=== PATIENT | male | born 1970 | race Caucasian/White ===

== ENCOUNTER → 2019-12-29 | Outpatient (CLI) | payer MEDICARE | LOC: CARD 11:01 | PROVIDERS: ATTEND Internal Medicine | DX: I34.0 Nonrheumatic mitral (valve) insufficiency (principal); I51.7 Cardiomegaly | CPT/HCPCS: 93306 ==

== ENCOUNTER → 2020-01-03 | Outpatient (CLI) | payer MEDICARE ==
[~2020-01-03] VITALS: Ht 172 cm; Wt 113.0 kg
[~2020-01-03] MED LIST: CATHETER FLUSH 10 ML SYR IV PRN
[2020-01-03 07:51] VITALS: BP 129/65
--- NOTE | 2020-01-04 13:13 | Cardiology Stress Test Report ---
Stress Test Report Date of Procedure/Referring: Date of Procedure: Jan 04, 2020 PCP Sakina Quintero DO Admitting Physician Sakina Quintero DO Indications: Chest pain Baseline Vital Signs Vital Signs Date Time Temp Pulse Resp B/P (MAP) Pulse Ox O2 Delivery O2 Flow Rate FiO2 01/03/20 07:51 70 129/65 (86) 99 01/03/20 08:06 18 Room Air Summary: Patient receive a resting and stress dose of Myoview, images were acquired and reviewed in the short axis view, horizontal long axis view and vertical long axis view. TID: 0.95 SSS: 0 SDS: 0 EF: 72 1. No ischemia or infarction on SPECT images 2. Normal left ventricular size, EF 72 percent RIANA ELIZONDO MD Jan 04, 2020 13:13
== END ==
LOC: CARD 07:15
PROVIDERS: ATTEND Internal Medicine
DX: R07.9 Chest pain, unspecified (principal)
CPT/HCPCS: 78452; 93017; A9502

== ENCOUNTER 2021-10-24 18:25 | Emergency (ER) | payer MEDICARE ==
[~2021-10-24] VITALS: Ht 172.7 cm; Wt 129.3 kg
--- NOTE | 2021-10-24 19:07 | ED Psychosocial ---
General Chief Complaint: Psych/Social Disorder Stated Complaint: PANIC ATTACK Nursing Triage Note: PT AMB TO [facility] AFTER BEING BROUGHT IN BY [facility]. PT STATES HE HAD A PANIC ATTACK ABOUT 1[employer]. STATES HE WAS TELLING FRIEND HE HAD MULTIPLE PERSONALITIES, FRIEND STARTED TO LAUGH, AND TRIGGERED PANIC ATTACK. PT STATES HE IS "WANTING TO BE COMMITTED". PT HAS LONG PYSCH HX. STATES HE IS OUT OF HIS PRESCRIBED ATIVAN. Source: patient, EMS Exam Limitations: no limitations History of Present Illness Date Seen by Provider: Oct 24, 2021 Time Seen by Provider: 18:32 Initial Comments 50-year-old male with past medical history of dissociative identity disorder as well as anxiety coming in via EMS due to one of his personalities coming out that speaks in tongues while at jainism today. He says he has been having multiple panic attacks today, follows with [facility], and has a caseworker intake. He told the people he was staying with that he has DID and they started laughing. He feels like this started the trigger of the different personality. He says he believes he has at least 10 different personalities. He says all of them go by the name of in that he believes. He believes currently his personality that is in charge right now is one of the main ones. His plan is to call his caseworker intake in the morning and have follow-up. His parents are coming back to town and his plan will be to stay with them. He has a safe place to stay tonight. He denies any thoughts to harm himself or harm anyone else. Allergies and Home Medications Allergies Coded Allergies: No Known Drug Allergies (Unverified , 01/03/20) Patient Home Medication List Home Medication List Reviewed: Yes Review of Systems Constitutional: No fever EENTM: No blurred vision Respiratory: No cough Cardiovascular: No chest pain Gastrointestinal: No abdominal pain Genitourinary: no symptoms reported Musculoskeletal: no symptoms reported Skin: no symptoms reported Psychiatric/Neurological: Anxiety All Other Systems Reviewed Negative Unless Noted: Yes Past Puffjtg-Syggku-Vgsitl Hx Patient Social History Tobacco Use?: No Use of E-Cig and/or Vaping dev: No Substance use?: No Alcohol Use?: No Pt feels they are or have been: No Past Medical History Surgeries: No Physical Exam Vital Signs - First Documented 10/24/21 18:25 Temp 37.7 Pulse 71 Resp 16 B/P (MAP) 160/81 (107) Pulse Ox 96 O2 Delivery Room Air Capillary Refill : Less Than 3 Seconds Height, Weight, BMI Height: '" Weight: lbs. oz. kg; 43.00 BMI Method: General Appearance: WD/WN, no apparent distress HEENT: PERRL/EOMI, normal ENT inspection, pharynx normal Neck: non-tender, full range of motion, supple, normal inspection Respiratory: chest non-tender, lungs clear, normal breath sounds, no respiratory distress, no accessory muscle use Cardiovascular: regular rate, rhythm, no edema, no murmur Gastrointestinal: normal bowel sounds, non tender, soft; No distended, No gu arding, No rebound Extremities: normal range of motion, non-tender, normal inspection, no pedal edema, no calf tenderness, normal capillary refill Neurologic/Psychiatric: no motor/sensory deficits, alert, normal mood/affect, oriented x 3 Appearance/Memory: appropriate appearance, appropriate insight Behavior/Eye Contact: cooperative, good eye contact, normal speech Thoughts/Hallucinations: normal thought pattern, no apparent hallucination Skin: normal color, warm/dry Lymphatic: no adenopathy Progress/Results/Core Measures Results/Orders Vital Signs/I&O 10/24/21 18:25 Temp 37.7 Pulse 71 Resp 16 B/P (MAP) 160/81 (107) Pulse Ox 96 O2 Delivery Room Air Blood Pressure Mean: 107 Progress Progress Note : Progress Note 50-year-old male with above history coming in due to a different personality emerging with known dissociative identity disorder. Currently he is well- appearing, pleasant, not wanting to hurt himself or harm anyone else. And he has good follow-up with mental health. He does not want a full mental health evaluation in the ER as he is back to his baseline. He says his panic attack is over, but he does have a baseline anxiety that is above normal right now. Given oral Ativan and someone also drive him home. Has a safe place to go and has follow-up Departure Impression Primary Impression: Dissociative identity disorder Additional Impression: Anxiety Disposition: 01 HOME, SELF-CARE Condition: Stable Departure-Patient Inst. Decision time for Depature: 19:06 Patient Instructions: Anxiety, Adult (DC) Add. Discharge Instructions: Please follow-up with your caseworker intake in the morning. If you have any thoughts to harm yourself or harm anyone else please come back to the ER. Work/School Note: Work Release Form Date Seen in the Emergency Department: Oct 24, 2021 Return to Work: Oct 25, 2021 Restrictions: No Restrictions KERRIE CARRENO MD Oct 24, 2021 19:07
[2021-10-24 19:11] VITALS: BP 154/68
[2021-10-24] MEDS ORDERED: LORazepam 0.5 MG (ATIVAN) TABLET PO ONE (19:15)
== END 2021-10-24 19:12 | disposition home or self-care (01) ==
LOC: EDUNIT# 18:35 → ER 18:37
DX: F41.9 Anxiety disorder, unspecified (principal); F44.81 Dissociative identity disorder
CPT/HCPCS: 99283

== ENCOUNTER 2022-01-04 23:26 | Emergency (ER) | payer MEDICARE ==
--- NOTE | 2022-01-04 23:34 | ED General ---
General Stated Complaint: PSYCH EVAL History of Present Illness Date Seen by Provider: Jan 04, 2022 Time Seen by Provider: 23:32 Initial Comments 51-year-old male with PMH of personality disorder/PTSD/recurrent suicide ideations and attempts, is brought in by police for suicidal ideation. Patient has been placed as involuntary hold, however patient does want help. Patient lives with his girlfriend who has a disability and so cannot accompany him to the hospital. Patient states that he wishes he was and wants to . In the past he has tried to cut himself, burn himself, overdose. Patient states that he feels he has demons in him who intermittently speaks through him and tells him to kill himself. When this occurs patient gets an evil laugh and start speaking non-Brazilian words. Denies pain, fever, palpitations. Patient states that he is compliant with all his medications, but it is not helping. The last time he had a medication change was 2 months ago. Patient also states that counseling is not helping him either. Allergies and Home Medications Allergies Coded Allergies: No Known Drug Allergies (Unverified , 01/03/20) Patient Home Medication List Home Medication List Reviewed: Yes Review of Systems Review of Systems Constitutional: no symptoms reported EENTM: no symptoms reported Respiratory: no symptoms reported Cardiovascular: no symptoms reported Gastrointestinal: no symptoms reported Genitourinary: no symptoms reported Musculoskeletal: no symptoms reported Skin: no symptoms reported Psychiatric/Neurological: Anxiety, Depressed, Emotional Problems Hematologic/Lymphatic: No Symptoms Reported Immunological/Allergic: no symptoms reported Past Yiyixvh-Svwgsi-Dkftos Hx Past Medical History Surgeries: No Physical Exam Vital Signs Capillary Refill : Height, Weight, BMI Height: '" Weight: lbs. oz. kg; 43.00 BMI Method: General Appearance: Anxious, Moderate Distress, Obese HEENT: PERRL/EOMI Neck: Normal Inspection Respiratory: Chest Non Tender, Lungs Clear Cardiovascular: Regular Rate, Rhythm Gastrointestinal: Non Tender, Soft Extremity: Normal Range of Motion Neurologic/Psychiatric: Alert, Oriented x3 Comments Suicidal ideations present. Pt intermittently speaks non-Brazilian words. Pt does not know any other languages except for Brazilian. Progress/Results/Core Measures Suspected Sepsis SIRS Temperature: Pulse: Respiratory Rate: Laboratory Tests 01/04/22 23:35: White Blood Count 9.3 Blood Pressure / Mean: Laboratory Tests 01/04/22 23:35: Creatinine 1.00, Platelet Count 364, Total Bilirubin 0.3 Results/Orders Lab Results Laboratory Tests Test 01/04/22 23:28 01/04/22 23:35 01/04/22 23:55 Range/Units Urine Color YELLOW Urine Clarity CLEAR Urine pH 7.0 5-9 Urine Specific [place] 1.010 L 1.016-1.022 Urine Protein NEGATIVE NEGATIVE Urine Glucose (UA) NEGATIVE NEGATIVE Urine Ketones NEGATIVE NEGATIVE Urine Nitrite NEGATIVE NEGATIVE Urine Bilirubin NEGATIVE NEGATIVE Urine Urobilinogen 0.2 < = 1.0 MG/DL Urine Leukocyte Esterase NEGATIVE NEGATIVE Urine RBC (Auto) TRACE-I H NEGATIVE Urine RBC 5-10 H /HPF Urine WBC NONE /HPF Urine Crystals NONE /LPF Urine Bacteria TRACE /HPF Urine Casts NONE /LPF Urine Mucus NEGATIVE /LPF Urine Culture Indicated NO Urine Opiates Screen NEGATIVE NEGATIVE Urine Oxycodone Screen NEGATIVE NEGATIVE Urine Methadone Screen NEGATIVE NEGATIVE Urine Propoxyphene Screen NEGATIVE NEGATIVE Urine Barbiturates Screen NEGATIVE NEGATIVE Ur Tricyclic Antidepressants Screen NEGATIVE NEGATIVE Urine Phencyclidine Screen NEGATIVE NEGATIVE Urine Amphetamines Screen NEGATIVE NEGATIVE Urine Methamphetamines Screen NEGATIVE NEGATIVE Urine Benzodiazepines Screen NEGATIVE NEGATIVE Urine Cocaine Screen NEGATIVE NEGATIVE Urine Cannabinoids Screen NEGATIVE NEGATIVE White Blood Count 9.3 4.3-11.0 10^3/uL Red Blood Count 5.17 4.30-5.52 10^6/uL Hemoglobin 13.8 13.3-17.7 g/dL Hematocrit 42 40-54 % Mean Corpuscular Volume 81 80-99 fL Mean Corpuscular Hemoglobin 27 25-34 pg Mean Corpuscular Hemoglobin Concent 33 32-36 g/dL Red Cell Distribution Width 14.6 H 10.0-14.5 % Platelet Count 364 130-400 10^3/uL Mean Platelet Volume 9.7 9.0-12.2 fL Immature Granulocyte % (Auto) 0 % Neutrophils (%) (Auto) 54 42-75 % Lymphocytes (%) (Auto) 28 12-44 % Monocytes (%) (Auto) 10 0-12 % Eosinophils (%) (Auto) 7 0-10 % Basophils (%) (Auto) 1 0-10 % Neutrophils # (Auto) 5.1 1.8-7.8 X 10^3 Lymphocytes # (Auto) 2.6 1.0-4.0 X 10^3 Monocytes # (Auto) 1.0 0.0-1.0 X 10^3 Eosinophils # (Auto) 0.6 H 0.0-0.3 10^3/uL Basophils # (Auto) 0.1 0.0-0.1 10^3/uL Immature Granulocyte # (Auto) 0.0 0.0-0.1 10^3/uL Sodium Level 137 135-145 MMOL/L Potassium Level 3.8 3.6-5.0 MMOL/L Chloride Level 103 98-107 MMOL/L Carbon Dioxide Level 22 21-32 MMOL/L Anion Gap 12 5-14 MMOL/L Blood Urea Nitrogen 12 7-18 MG/DL Creatinine 1.00 0.60-1.30 MG/DL Estimat Glomerular Filtration Rate 92 BUN/Creatinine Ratio 12 Glucose Level 109 H 70-105 MG/DL Calcium Level 8.9 8.5-10.1 MG/DL Corrected Calcium 9.1 8.5-10.1 MG/DL Total Bilirubin 0.3 0.1-1.0 MG/DL Aspartate Amino Transf (AST/SGOT) 26 5-34 U/L Alanine Aminotransferase (ALT/SGPT) 26 0-55 U/L Alkaline Phosphatase 69 40-136 U/L Total Protein 7.1 6.4-8.2 GM/DL Albumin 3.8 3.2-4.5 GM/DL Salicylates Level < 0.3 L 5.0-20.0 MG/DL Acetaminophen Level < 10 L 10-30 UG/ML Serum Alcohol < 10 <10 MG/DL SARS-CoV-2 RNA (RT-PCR) Not Detected Not Detecte My Orders Orders - MARLENY PERES MD Cbc With Automated Diff (01/04/22 23:41) Comprehensive Metabolic Panel (01/04/22 23:41) Ekg Tracing (01/04/22 23:41) Alcohol (01/04/22 23:41) Salicylate (01/04/22 23:41) Acetaminophen (01/04/22 23:41) Ua Culture If Indicated (01/04/22 23:41) Drug Screen Stat (Urine) (01/04/22 23:41) Covid 19 Inhouse Test (01/04/22 23:41) Lorazepam Tablet (Ativan Tablet) (01/04/22 23:49) Vital Signs/I&O Capillary Refill : Progress Note : Progress Note 1. PSYCHOSIS WITH SUICIDAL IDEATIONS: - Labs: unremarkable - UA/ UDS: negative - EKG:normal sinus rhythm, no ischemic changes - Ativan 0.5mg oral given - Psych screening needed - Pt is placed involuntary by law enforcement. Departure Impression Primary Impression: Suicidal ideations Additional Impression: Psychosis Disposition: 65 XFER TO PSYCH HOSP/UNIT Condition: Stable MARLENY PERES MD Jan 04, 2022 23:34
[2022-01-04 23:46] LABS: CLARITY,URINE CLEAR; COLOR,URINE YELLOW; GLUCOSE, URINE (UA) NEGATIVE (NEGATIVE); PROTEIN,URINE NEGATIVE (NEGATIVE)
[2022-01-04 23:47] LABS: BACTERIA,URINE TRACE /HPF; BILIRUBIN,URINE NEGATIVE (NEGATIVE); KETONES,URINE NEGATIVE (NEGATIVE); LEUKOCYTE ESTERASE ,URINE NEGATIVE (NEGATIVE); NITRITE,URINE NEGATIVE (NEGATIVE)
[2022-01-04 23:47] LABS: HEMATOCRIT 42 % (40-54); HEMOGLOBIN 13.8 g/dL (13.3-17.7); MEAN CORPUSCULAR HEMOGLOBIN 27 pg (25-34); MEAN CORPUSCULAR VOLUME 81 fL (80-99); WHITE BLOOD COUNT 9.3 10^3/uL (4.3-11.0)
[2022-01-04 23:48] LABS: BASOPHILS # (AUTO) 0.1 10^3/uL (0.0-0.1); BASOPHILS % (AUTO) 1 % (0-10); EOSINOPHILS # (AUTO) 0.6 10^3/uL (0.0-0.3); EOSINOPHILS % (AUTO) 7 % (0-10); LYMPHOCYTES # (AUTO) 2.6 X 10^3 (1.0-4.0); LYMPHOCYTES % (AUTO) 28 % (12-44); MEAN CORPUSCULAR HGB CONC 33 g/dL (32-36); MEAN PLATELET VOLUME 9.7 fL (9.0-12.2); MONOCYTES % (AUTO) 10 % (0-12); NEUTROPHILS # (AUTO) 5.1 X 10^3 (1.8-7.8); NEUTROPHILS % (AUTO) 54 % (42-75); PLATELET COUNT 364 10^3/uL (130-400)
[2022-01-04] MEDS ORDERED: LORazepam 0.5 MG (ATIVAN) TABLET PO STA (23:49)
[2022-01-04 23:50] LABS: AMPHETAMINE SCREEN, URINE NEGATIVE (NEGATIVE); BARBITURATE SCREEN URINE NEGATIVE (NEGATIVE); BENZODIAZEPINES SCREEN URINE NEGATIVE (NEGATIVE); CANNABINOID SCREEN, URINE NEGATIVE (NEGATIVE); COCAINE SCREEN URINE NEGATIVE (NEGATIVE); METHADONE STAT NEGATIVE (NEGATIVE); OPIATE SCREEN URINE NEGATIVE (NEGATIVE); OXYCODONE STAT NEGATIVE (NEGATIVE); PROPOXYPHENE STAT NEGATIVE (NEGATIVE); TRICYCLIC ANTIDEPRESSANTS SCRE NEGATIVE (NEGATIVE)
[2022-01-04 23:59] LABS: BUN/CREATININE RATIO 12; CALCIUM 8.9 MG/DL (8.5-10.1); CARBON DIOXIDE 22 MMOL/L (21-32); CHLORIDE 103 MMOL/L (98-107); GFR ESTIMATED 92; GLUCOSE 109 MG/DL (70-105); POTASSIUM 3.8 MMOL/L (3.6-5.0); SODIUM 137 MMOL/L (135-145)
[2022-01-05] LABS: ACETAMINOPHEN < 10 UG/ML (10-30); ALANINE AMINOTRANSFERASE 26 U/L (0-55); ALBUMIN 3.8 GM/DL (3.2-4.5); ALKALINE PHOSPHATASE 69 U/L (40-136); BILIRUBIN,TOTAL 0.3 MG/DL (0.1-1.0); SALICYLATE < 0.3 MG/DL (5.0-20.0); TOTAL PROTEIN 7.1 GM/DL (6.4-8.2)
[2022-01-05 14:25] VITALS: BP 147/86
== END 2022-01-05 14:27 ==
LOC: EDUNIT# 23:26 → ER FS 23:28
DX: R45.851 Suicidal ideations (principal); F29 Unspecified psychosis not due to a substance or known physiological condition; E66.9 Obesity, unspecified; Z68.41 Body mass index [BMI] 40.0-44.9, adult; Z28.310 Unvaccinated for COVID-19; Z20.822 Contact with and (suspected) exposure to COVID-19
CPT/HCPCS: 36415; 80053; 80306; 81000; 85025; 87636; 93005; 99284; G0480 ×3; 80320; 80329

== ENCOUNTER 2022-06-21 13:26 | Emergency (ER) | payer MEDICARE ==
[2022-06-21] MEDS ORDERED: LORazepam 0.5 MG (ATIVAN) TABLET PO STA (13:50)
--- NOTE | 2022-06-21 14:17 | ED General ---
General Chief Complaint: General Problems/Pain Stated Complaint: AMS; NATURAL GAS EXPOSURE Nursing Triage Note: PT REPORTS "I CANT THINK RIGHT" D/T HIS MULTIPLE PERSONALITY DISORDER AND HE USUALLLY TAKES LORAZEPAM FOR HIS ANXIETY BUT HE FORGOT IT AT HOME IN [place]. Source of Information: Patient, EMS, Other (Significant other) History of Present Illness Date Seen by Provider: June 21, 2022 Time Seen by Provider: 13:33 Initial Comments 51-year-old male patient with dissociative identity disorder and panic attack brought in by EMS because of panic attack. Patient states that he cannot think right and everything is slow and he sees things in his mild but not by his eyes or hearing. Patient denies suicidal or homicidal ideation. Patient is alert and oriented but answering the questions very slow. Patient states he usually takes alprazolam 0.5 mg for episodes of slow acting but visiting his girlfriend and does not have his alprazolam with him. Patient denies shortness of breath, chest pain, nausea and vomiting, blurred vision. Patient complaining of dry mouth. Patient girlfriend stated that they had natural gas leak at home and police rescued them and he became anxious and had a panic attack and EMS was informed. Allergies and Home Medications Allergies Coded Allergies: No Known Drug Allergies (Unverified , 01/03/20) Patient Home Medication List Home Medication List Reviewed: Yes Review of Systems Review of Systems Constitutional: no symptoms reported EENTM: see HPI Respiratory: no symptoms reported Cardiovascular: no symptoms reported Gastrointestinal: no symptoms reported Genitourinary: no symptoms reported Musculoskeletal: no symptoms reported Skin: no symptoms reported Psychiatric/Neurological: See HPI Hematologic/Lymphatic: No Symptoms Reported All Other Systems Reviewed Negative Unless Noted: Yes Past Asjurmk-Afybvs-Wwyzqm Hx Patient Social History Tobacco Use?: No Use of E-Cig and/or Vaping dev: No Substance use?: No Alcohol Use?: No Pt feels they are or have been: No Past Medical History Surgeries: No Physical Exam Vital Signs Vital Signs - First Documented 06/21/22 13:31 Temp 37.0 Pulse 110 Resp 16 B/P (MAP) 141/69 (93) Pulse Ox 95 O2 Delivery Room Air Capillary Refill : Less Than 3 Seconds Height, Weight, BMI Height: '" Weight: lbs. oz. kg; 43.00 BMI Method: General Appearance: Mild Distress (Slow acting), Obese Eyes: Bilateral Eye Normal Inspection, Bilateral Eye PERRL, Bilateral Eye EOMI HEENT: PERRL/EOMI, TMs Normal, Normal ENT Inspection, Pharynx Normal Neck: Full Range of Motion, Normal Inspection, Non Tender, Supple, Carotid Bruit Respiratory: Chest Non Tender, Lungs Clear, Normal Breath Sounds, No Accessory Muscle Use, No Respiratory Distress Cardiovascular: Regular Rate, Rhythm, No Edema, No Gallop, No JVD, No Murmur, Normal Peripheral Pulses Gastrointestinal: Normal Bowel Sounds, No Organomegaly, No Pulsatile Mass, Non Tender, Soft Back: Normal Inspection, No CVA Tenderness, No Vertebral Tenderness Extremity: Normal Capillary Refill, Normal Inspection, Normal Range of Motion, Non Tender, No Calf Tenderness, No Pedal Edema Neurologic/Psychiatric: Alert, Oriented x3, No Motor/Sensory Deficits, Normal Mood/Affect Skin: Normal Color, Warm/Dry Lymphatic: No Adenopathy Progress/Results/Core Measures Suspected Sepsis SIRS Temperature: Pulse: 110 Respiratory Rate: 16 Blood Pressure 141 /69 Mean: 93 Results/Orders My Orders Orders - SHAYNE NAIR MD Lorazepam Tablet (Ativan Tablet) (06/21/22 13:50) Vital Signs/I&O 06/21/22 13:31 Temp 37.0 Pulse 110 Resp 16 B/P (MAP) 141/69 (93) Pulse Ox 95 O2 Delivery Room Air Capillary Refill : Less Than 3 Seconds Blood Pressure Mean: 93 Progress Note : Progress Note Patient with history of dissociative identity disorder and episode of panic attack who visiting his girlfriend and did not have his alprazolam with him and had a panic attack after exposure to natural gas. Patient was alert and oriented without suicidal homicidal ideation but is talking to his low back but had episode of talking normally. Patient treated with 0.5 mg of alprazolam orally with improvement of his condition and stated he felt this to be to come to ER. Patient denied suicidal homicidal ideation again. Patient girlfriend is presented in ER to give him a ride. Patient has a safe place to go and advised to continue home medication and follow-up with [facility]. Departure Impression Primary Impression: Panic attack as reaction to stress Additional Impressions: Dissociative identity disorder Natural gas exposure Disposition: 01 HOME, SELF-CARE Condition: Improved Departure-Patient Inst. Decision time for Depature: 14:16 Referrals: GALEN REDDY MD (PCP) Primary Care Physician Patient Instructions: Panic Attack ED Add. Discharge Instructions: Continue home medication Drink plenty of liquids Follow-up with your primary care physician in 2 to 3 days Return to ER as needed All discharge instructions reviewed with patient and/or family. Voiced understanding. SHAYNE NAIR MD June 21, 2022 14:17
[2022-06-21 14:22] VITALS: BP 141/69
== END 2022-06-21 14:22 | disposition home or self-care (01) ==
LOC: EDUNIT# 13:26 → ER FS 13:27
DX: F41.0 Panic disorder [episodic paroxysmal anxiety] (principal); F43.0 Acute stress reaction; F44.81 Dissociative identity disorder; T59.91XA Toxic effect of unspecified gases, fumes and vapors, accidental (unintentional), initial encounter; E66.9 Obesity, unspecified; Z68.41 Body mass index [BMI] 40.0-44.9, adult
CPT/HCPCS: 99283